=== PATIENT | male | born 2000 | race Caucasian/White ===

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

== ENCOUNTER 2022-12-05 14:17 | Emergency (ER) | payer MEDICAID ==
[~2022-12-05] VITALS: Ht 177.8 cm; Wt 108.9 kg
[2022-12-05 14:28] VITALS: BP 126/80
--- NOTE | 2022-12-05 15:04 | NUR ---
22 years old male walking to er c/o lower extremity edema for 2 weeks no sob no wheezing d/c home with instructions and patient advised to follow up with PCP/cardiology.
== END 2022-12-05 15:03 | disposition home or self-care (01) ==
LOC: MED 14:17
DX: R60.0 Localized edema (principal); F12.90 Cannabis use, unspecified, uncomplicated; F11.90 Opioid use, unspecified, uncomplicated; Z79.1 Long term (current) use of non-steroidal anti-inflammatories (NSAID); Z91.030 Bee allergy status
CPT/HCPCS: 99281